=== PATIENT | male | born 2000 | race Caucasian/White ===

== ENCOUNTER 2022-03-06 21:31 | Emergency (ER) | payer MEDICAID ==
[~2022-03-06] VITALS: Ht 177.8 cm; Wt 113.0 kg
[2022-03-06] MEDS ORDERED: ASPIRIN 81MG TABLET PO ONE (22:30)
[2022-03-06 22:48] LABS: BASOPHILS % 0.3 % (0.0-2.0); EOSINOPHILS % 0.6 % (0.0-5.0); HEMOGLOBIN. 16.5 g/dL (14.0-18.0); LYMPHOCYTES % 14.7 % (20.0-50.0); MEAN CORPUSCULAR HEMOGLOBIN 30.5 pg (28.0-32.0); MEAN CORPUSCULAR VOLUME 88.6 fL (80.0-94.0); MEAN PLATELET VOLUME 10.4 fl (7.4-10.4); MONOCYTES % 4.6 % (2.0-8.0); NEUTROPHILS % 79.8 % (40.0-76.0); PLATELET 182 x1000/uL (130-400); RED BLOOD CELL COUNT 5.42 mill/uL (4.7-6.1); RED CELL DISTRIBUTION WIDTH 13.9 % (11.6-14.6)
[2022-03-06 22:53] LABS: CHLORIDE 110 mEq/L (98-107)
[2022-03-06 23:03] LABS: ETHANOL BLOOD < 10 mg/dL
[2022-03-06 23:39] LABS: *AMPHETAMINES SCREEN URINE NEGATIVE (NEGATIVE); *BARBITURATES SCREEN URINE NEGATIVE (NEGATIVE); *BENZODIAZEPINES SCREEN URINE NEGATIVE (NEGATIVE); *COCAINE SCREEN URINE NEGATIVE (NEGATIVE); CANNABINOID URINE SCREEN NEGATIVE (NEGATIVE); METHADONE URINE SCREEN NEGATIVE (NEGATIVE); OPIATES URINE SCREEN NEGATIVE (NEGATIVE); PHENCYCLIDINE URINE SCREEN NEGATIVE (NEGATIVE)
[2022-03-07 12:00] VITALS: BP 124/87
== END 2022-03-07 12:33 | disposition short-term general hospital (02) ==
LOC: ER 21:46 → EDBEDREQ 03-07 05:23 → EDBEDREQTM 03-07 05:23 → ER 03-07 12:33 → CANBEDREQ 03-07 21:06
DX: I48.92 Unspecified atrial flutter (principal); R77.8 Other specified abnormalities of plasma proteins; Z20.822 Contact with and (suspected) exposure to COVID-19
CPT/HCPCS: 36415; 71045; 80053; 80305; 80320; 83605; 83880; 84443; 84484; 85025; 85379; 87426; 87804; 93005; 99285; C9803; Z7610; G0480

== ENCOUNTER 2022-09-01 20:39 | Emergency (ER) | payer MEDICAID ==
[~2022-09-01] VITALS: Ht 177.8 cm; Wt 70.0 kg
[2022-09-01 20:42] VITALS: O2SAT 99
[2022-09-01] MEDS: SODIUM CHLORIDE 0.9% 1,000 ML IV ONE (21:00)
[2022-09-01] MEDS: ASPIRIN 81MG TABLET PO ONE (21:15)
[2022-09-01] MEDS: METOPROLOL TARTRATE 25MG TABLET PO ONE (21:15)
[2022-09-01 22:32] LABS: *AMPHETAMINES SCREEN URINE NEGATIVE (NEGATIVE); *BARBITURATES SCREEN URINE NEGATIVE (NEGATIVE); *BENZODIAZEPINES SCREEN URINE NEGATIVE (NEGATIVE); *COCAINE SCREEN URINE NEGATIVE (NEGATIVE); CANNABINOID URINE SCREEN NEGATIVE (NEGATIVE); METHADONE URINE SCREEN NEGATIVE (NEGATIVE); OPIATES URINE SCREEN NEGATIVE (NEGATIVE); PHENCYCLIDINE URINE SCREEN NEGATIVE (NEGATIVE)
[2022-09-01 22:40] LABS: BASOPHILS % 0.2 % (0.0-2.0); EOSINOPHILS % 0.4 % (0.0-5.0); HEMATOCRIT. 42.9 % (42.0-52.0); HEMOGLOBIN. 14.9 g/dL (14.0-18.0); LYMPHOCYTES % 10.3 % (20.0-50.0); MEAN CORPUSCULAR HEMOGLOBIN 31.2 pg (28.0-32.0); MEAN CORPUSCULAR VOLUME 89.9 fL (80.0-94.0); MEAN PLATELET VOLUME 10.3 fl (7.4-10.4); MONOCYTES % 3.8 % (2.0-8.0); NEUTROPHILS % 85.3 % (40.0-76.0); PLATELET 199 x1000/uL (130-400); RED BLOOD CELL COUNT 4.77 mill/uL (4.7-6.1); RED CELL DISTRIBUTION WIDTH 13.4 % (11.6-14.6)
[2022-09-01 22:50] LABS: CHLORIDE 110 mEq/L (98-107)
[2022-09-01 22:59] LABS: ETHANOL BLOOD < 10 mg/dL (-10); T4 FREE 0.96 ng/dL (0.76-1.46)
[2022-09-01] MEDS ORDERED: METO-396 MT (23:23)
[2022-09-02 02:10] VITALS: BP 104/52; PULSE 76; RESP 12; TEMP 98.7
== END 2022-09-02 02:33 | disposition home or self-care (01) ==
LOC: ER 20:39 → CANBEDREQ 09-02 03:20
DX: I47.1 Supraventricular tachycardia (principal)
CPT/HCPCS: 80053; 80305; 80320; 83880; 84439; 83735; 84443; 85025; 84484 ×2; 36415 ×2; 71045; 93005; 96360; 99285; Z7610; J7030; G0480